=== PATIENT | female | born 1985 | race Caucasian/White ===

== ENCOUNTER 2019-03-17 18:22 | Emergency (ER) | payer SELFPAY ==
[~2019-03-17 18:22] MED LIST: Iopamidol-370 76% 500 ML 1 ML ONE
[2019-03-17 19:34] LABS: #Eosinphils 0.1 thou/uL (0.0-0.7); #Lymphocytes 1.3 thou/uL (1.20-3.40); #Monocytes 1.2 thou/uL (0.11-0.59); #Neutrophils 8.5 thou/uL (1.40-6.50); %Basophils 0.2 % (0.0-1.0); %Eosinophils 0.7 % (0.0-10.0); %Monocytes 10.6 % (0.0-10.0); %Neutrophils 76.5 % (42.0-75.0); Hemoglobin 12.5 g/dL (12.0-16.0); Mean Corpuscular HGB CONC 33.3 g/dL (32.0-36.0); Mean Corpuscular Volume 90.1 fL (78.0-98.0); Mean Platelet Volume 8.1 fL (7.4-10.4); Platelet Count 243 thou/uL (130-400); RBC Distribution Width 13.1 % (11.5-14.5); Red Blood Cell (RBC) Count 4.16 mill/uL (4.20-5.40); White Blood Cell (WBC) Count 11.1 thou/uL (4.8-10.8)
[2019-03-17] MEDS ORDERED: Dexamethasone 4 mg/ml Vial ONE (19:45)
[2019-03-17] MEDS ORDERED: Ketorolac Tromethamine 30 MG/ML VIAL ONE (19:45)
[2019-03-17 19:50] LABS: BHCG - Serum Negative (NEGATIVE); Pregs Control Background? CLEAR/WHITE (CLR/WHITE); Pregs Control Bar Appear? YES (CONTROL BAR)
[2019-03-17 19:55] LABS: ALT (SGPT) 8 U/L (8-55); AST (SGOT) 13 U/L (5-34); Albumin 3.7 g/dL (3.5-5.0); Alkaline Phosphatase 83 U/L (40-110); Anion Gap 14 mmol/L (10-20); BUN (Urea Nitrogen) 8 mg/dL (7.0-18.7); Bilirubin, Total 0.4 mg/dL (0.2-1.2); Calc. Creatinine Clearance 0 mL/min (70-130); Calcium 9.3 mg/dL (7.8-10.44); Carbon Dioxide 27 mmol/L (22-29); Chloride 105 mmol/L (98-107); Estimated GFR-MDRD Greater than 90; Globulin 3.6 g/dL (2.4-3.5); Glucose 103 mg/dL (70-105); Potassium 3.9 mmol/L (3.5-5.1); Protein, Total 7.3 g/dL (6.0-8.3); Sodium 142 mmol/L (136-145)
--- NOTE | 2019-03-17 20:20 | CT ---
Neck CT with IV contrast: 03/17/2019 COMPARISON: None HISTORY: Left tonsillar swelling, pain when opening the mouth TECHNIQUE: Axial CT imaging at 2.5 mm intervals from the skull base through the lung apices with IV c ontrast. Coronal and sagittal reformatted imaging obtained. FINDINGS: Imaged brain parenchyma grossly unremarkable. Partially imaged paranasal sinuses and mastoi d air cells are well aerated. The retroantral fat and parapharyngeal fat is grossly unremarkable aside from mild stranding of the l eft parapharyngeal fat. There is enlargement of the palatine tonsil on the left with a peritonsillar abscess on the left along the lateral margin of the left palantine tonsil measuring 2.5 cm in craniocaudal dimension, 1.7 cm in AP dimension, and 1.2 cm in transverse dimension. The palatine tonsil on the right appears unremarkable. The epiglottis and preepiglottic fat appears w ithin normal limits. There is mild mucosal edema involving the posterior left lateral oropharyngeal mucosa extending into the region of the piriform sinus on the left. Level of the glottis appears unre markable. The epiglottis and preepiglottic fat, the hyoid bone, the thyroid cartilage, and the cricoid cartilage appear unremarkable. The thyroid gland appears normal. The imaged lung apices are unremarkable. The vascular structures of the neck appear patent. Lymphadenopathy is noted within the neck bilaterally, including multiple mildly enlarged level 1 lymp h nodes on the left, level 2 nodes measuring 1.3 cm short axis dimension on the left and 1.1 cm short axis dimension on the right, as well as multiple mildly prominent bilateral posterior triangle nodes. No acute osseous abnormality is evident. IMPRESSION: Peritonsillar abscess on the left as detailed above.
[2019-03-17] MEDS ORDERED: Morphine 4 MG/ML VIAL ONE (20:36)
[2019-03-17] MEDS ORDERED: Benzocaine 20% Spray 60 ML CAN ONE (21:08)
== END 2019-03-17 22:18 | disposition home or self-care (01) ==
LOC: ERS 18:22
DX: J36 Peritonsillar abscess (principal); F41.9 Anxiety disorder, unspecified; F17.210 Nicotine dependence, cigarettes, uncomplicated
CPT/HCPCS: 36415; 42700; 70491; 80053; 84703; 85025; 87081; 87430; 96374; 96375; J1100; J1885; J2270; Q9967